=== PATIENT | female | born 1990 | race Two or more races ===

== ENCOUNTER 2022-04-05 08:50 | Observation (INO) | payer MEDICAID ==
[2022-04-05] MEDS ORDERED: PREN27TA7 OR (10:41)
[2022-04-05] MEDS ORDERED: FERR27TA2 PO (10:42)
[2022-04-05] MEDS ORDERED: INSUINJ2 SC (11:28)
== END 2022-04-05 12:15 | disposition home or self-care (01) ==
LOC: UNDOADMOB 08:50 → LDRP 08:50 → UNDODISOB 12:15
PROVIDERS: ADMIT Obstetrics & Gynecology; ATTEND Obstetrics & Gynecology
DX: O62.9 Abnormality of forces of labor, unspecified (principal); Z20.822 Contact with and (suspected) exposure to COVID-19; O26.893 Other specified pregnancy related conditions, third trimester; N89.8 Other specified noninflammatory disorders of vagina; O24.414 Gestational diabetes mellitus in pregnancy, insulin controlled; Z79.4 Long term (current) use of insulin; Z3A.37 37 weeks gestation of pregnancy
CPT/HCPCS: 36415; 59025; 81002; 82962; 87426; 94760; G0378